=== PATIENT | male | born 1995 | race Caucasian/White ===

== ENCOUNTER 2017-09-13 08:25 | Emergency (ER) | payer BC ==
[~2017-09-13] VITALS: Ht 177.8 cm; Wt 111.8 kg
[2017-09-13 08:32] VITALS: Ht 177.8 cm; Wt 111.8 kg
[2017-09-13 09:12] VITALS: BP 137/81
== END 2017-09-13 09:12 | disposition home or self-care (01) ==
LOC: ED 08:25
DX: H66.92 Otitis media, unspecified, left ear (principal); J02.9 Acute pharyngitis, unspecified; J45.909 Unspecified asthma, uncomplicated

== ENCOUNTER 2018-05-14 14:44 | Emergency (ER) | payer BC ==
[~2018-05-14] VITALS: Ht 175.3 cm; Wt 116.6 kg
[2018-05-14 15:49] VITALS: BP 126/61
== END 2018-05-14 15:49 | disposition home or self-care (01) ==
LOC: ED 14:44
DX: H66.92 Otitis media, unspecified, left ear (principal); J45.909 Unspecified asthma, uncomplicated

== ENCOUNTER 2018-08-02 14:06 | Emergency (ER) | payer BC ==
[~2018-08-02] VITALS: Ht 177.8 cm; Wt 113.4 kg
[2018-08-02 14:08] VITALS: BP 140/93; Ht 177.8 cm; Wt 113.4 kg
== END 2018-08-02 16:01 | disposition home or self-care (01) ==
LOC: ED 14:06
DX: N48.89 Other specified disorders of penis (principal); J45.909 Unspecified asthma, uncomplicated